=== PATIENT | male | born 1950 | race Caucasian/White ===

== ENCOUNTER 2021-05-18 15:02 | Inpatient (IN) | payer MEDICARE, OTHER ==
[~2021-05-18] VITALS: Ht 172.7 cm; Wt 61.7 kg
[2021-05-18] MEDS ORDERED: METO-356 PO (15:29)
[2021-05-18] MEDS ORDERED: POLY17PO4 PO (15:29)
[2021-05-18] MEDS ORDERED: ERGO500040 PO (15:29)
[2021-05-18] MEDS ORDERED: VALA500T34 PO (15:29)
[2021-05-18] MEDS ORDERED: AMLO-212 PO (15:29)
[2021-05-18 16:13] LABS: HEMATOCRIT 41.8 % (36.7-47.1); MEAN CORPUSCULAR HEMOGLOBIN 31.9 uug (23.8-33.4); MEAN CORPUSCULAR VOLUME 93.6 fL (73.0-96.2); PLATELET COUNT (AUTO) 256 K/uL (152-348)
[2021-05-18 16:17] LABS: CARBON DIOXIDE 28 mmol/L (21-32); CHLORIDE 101 mmol/L (98-107); GLUCOSE 120 mg/dL (74-106); POTASSIUM 4.3 mmol/L (3.5-5.1); UREA NITROGEN, BLOOD 21 mg/dL (7-18)
[2021-05-18 16:18] LABS: ETHANOL < 3 MG/DL (0-0)
[2021-05-18 16:24] LABS: ACETAMINOPHEN < 2.0 ug/mL (10-30); ALANINE AMINOTRANSFERASE 41 U/L (16-63); ALKALINE PHOSPHATASE 169 U/L (50-136); ASPARTATE AMINOTRANSFERASE 34 U/L (15-37); BILIRUBIN,DIRECT 0.1 mg/dL (0.0-0.2); BILIRUBIN,TOTAL 0.5 mg/dL (0.2-1.0); TOTAL PROTEIN, SERUM 7.6 g/dL (6.4-8.2)
[2021-05-18 16:29] LABS: THYROID STIMULATING HORMONE 1.279 mIU/mL (0.358-3.740)
[2021-05-18 16:36] LABS: *BILIRUBIN,URIN NEGATIVE (NEGATIVE); *BLOOD, URINE NEGATIVE (NEGATIVE); *CLARITY,URINE CLEAR (CLEAR); *COLOR,URINE YELLOW (YELLOW); *KETONES,URINE NEGATIVE (NEGATIVE); LEUKOCYTE ESTERASE ,URINE NEGATIVE (NEGATIVE); NITRITE, URINE NEGATIVE (NEGATIVE); PH,URINE 5.5 (5.0-8.0); UGLUCOSE NEGATIVE (NEGATIVE)
[2021-05-18 16:45] LABS: *AMPHETAMINE, URINE NEGATIVE (NEGATIVE); *CANNABINOID, URINE NEGATIVE (NEGATIVE); *COCCAINE, URINE NEGATIVE (NEGATIVE); *OPIATE, URINE NEGATIVE (NEGATIVE); *PHENCYCLIDINE SCREEN,URINE NEGATIVE (NEGATIVE)
[2021-05-18] MEDS ORDERED: LORAZEPAM 0.5 MG TABLET PO ONE (18:00)
[2021-05-18] MEDS ORDERED: LORAZEPAM 1 MG TABLET ONE (18:31)
--- NOTE | 2021-05-18 20:01 | NUR ---
TRANSFERED TO [facility] VIA WHEELCHAIR WITH NO DISTRESS NOTED.
[2021-05-18] MEDS ORDERED: MIRALAX 17 GM POWD.PACK PO PRN (21:00)
[2021-05-18] MEDS ORDERED: ACETAMINOPHEN 325 MG TABLET PO PRN (21:15)
[2021-05-18] MEDS ORDERED: MAGNESIUM HYDROXIDE 30 ML LIQUID UDC PO PRN (21:15)
[2021-05-18] MEDS ORDERED: MAG HYDROX/AL HYDROX/SIMETH 30 ML LIQUID UDC PO PRN (21:15)
[2021-05-18 21:36] VITALS: BP 155/83
[2021-05-18] MEDS: LORAZEPAM 0.5 MG TABLET PO PRN (22:00)
--- NOTE | 2021-05-19 | NUR ---
Patient is a 71 year old male, brought in by family to [facility] ER for a evaluation. The crisis team interviewed this patient placed him on a 5150 for GD. Per the hold, the patient has been depressed and anxious for the last month or so. The Patients was concerned because he has not slept for many days, not bathing and has been staying in a dark room all day and night.The patient is unable to provide self care for himself. Upon face to face evaluation, patient was guarded, nervous and distracted. Manager Community Relations oriented the patient to the environment and the unit rules in order to make patient comfortable. An Advisement and Patients right handbook were provided. The patient has poor insight to his mental health and said he was prescribed an Antidepressant many years ago, but has not taken them because "I do not like to take medications". Manager Community Relations used that opportunity to educate the patient on the importance of compliance. Dr. Nelson was notified and orders were received. This comic book writer medicated the patient for insomnia and provided reassurance informing the patient of the plan of care . No behavioral issues noted and the patient agreed to take a shower without hesitation. Safety stratiges are in place.
[2021-05-19] MEDS: TEMAZEPAM 7.5 MG CAPSULE PO PRN ×2 (00:15→22:48)
[2021-05-19 07:30] VITALS: BP 122/79
[2021-05-19] MEDS: AMLODIPINE 5 MG TABLET PO SCH (08:52)
[2021-05-19] MEDS: METOPROLOL SUCCINATE XL 25 MG TAB.SR.24H PO SCH (08:52)
[2021-05-19] MEDS: VALACYCLOVIR HCL 500 MG TABLET PO SCH (08:52)
--- NOTE | 2021-05-19 10:30 | NUR ---
NAS Initial Discharge Plan Patient currently resides at home [address], [address] and will return home upon discharge to the care of his . NAS will work with the family and MD to coordinate appropriate discharge.
--- NOTE | 2021-05-19 10:32 | NUR ---
Firearms Report: Computer Operations Specialist completed and submitted a [employer] firearms report for 5150 grave disability certifications. A copy of report has been placed in patient chart.
[2021-05-19] MEDS: LORAZEPAM 0.5 MG TABLET PO PRN (11:08)
[2021-05-19] MEDS: SERTRALINE HCL 50 MG TABLET PO SCH (14:16)
--- NOTE | 2021-05-19 15:28 | NUR ---
GPS: PT ALERT AND ORIENTED. DENIES ANY PAIN OR DISCOMFORT. PT AND DAUGHTER CAME FOR A VISIT AT 1200 AND IS REQUESTING TO SPEAK WITH PSYCHIATRIST ABOUT THE MEDICATIONS PT IS TAKING. ALSO MENTIONED THAT PT TAKES MIRALAX EVERYDAY FOR HIS CROHNS DISEASE. PT ASKED FOR THE MEDICATION AN HOUR AGO AND TOLERATED WELL THE MIRALAX. PT ENCOURAGED TO ATTEND GROUP THERAPY.
[2021-05-19 16:36] VITALS: BP 136/82
--- NOTE | 2021-05-19 19:32 | NUR ---
GPS: PT'S RAULITO CAME FOR A VISIT AND REQUESTING TO SPOKE WITH PSYCHIATRIST REGARDING THE 14 DAY HOLD THAT DOES NOT LIKE TO HAPPEN AND SHE IS WILLING TO TAKE CARE OF PT AND WILL JUST HIRE SOMEONE TO HELP THEM. STATED THAT SHE WOULD NOT ALLOW THAT TO HAPPEN, EVEN AFTER EXPLAINING TO HER THAT THAT DOES NOT MEAN THAT PT WILL STAY FOR THE WHOLE 14 DAYS, IT DEPENDS ON THE PT PROGRESS. PER PSYCHIATRIST, THEY ALREADY SPOKE FOR 20 MINUTES TODAY.
[2021-05-19] MEDS: MIRTAZAPINE 15 MG TABLET PO SCH (20:15)
[2021-05-19 20:20] VITALS: BP 136/89
[2021-05-20 07:30] VITALS: BP 122/92
[2021-05-20] MEDS: LORAZEPAM 0.5 MG TABLET PO PRN ×2 (07:43→21:16)
[2021-05-20] MEDS: AMLODIPINE 5 MG TABLET PO SCH (08:20)
[2021-05-20] MEDS: SERTRALINE HCL 50 MG TABLET PO SCH ×2 (08:20→13:00)
[2021-05-20] MEDS: VALACYCLOVIR HCL 500 MG TABLET PO SCH (08:21)
[2021-05-20] MEDS: METOPROLOL SUCCINATE XL 25 MG TAB.SR.24H PO SCH (08:21)
--- NOTE | 2021-05-20 09:27 | NUR ---
GPS: PT RAULITO CALLED AND REQUESTING FOR A CALL FROM DR TOBAR. WILL INFORM PSYCHIATRIST. ALSO REQUESTING FOR A COPY OF MEDICATION LIST FOR PT.
[2021-05-20] MEDS: GLUCERNA SHAKE VANILLA 237 ML CAN PO SCH ×3 (11:14→17:00)
--- NOTE | 2021-05-20 14:48 | NUR ---
GPS: PT SPOKE WITH DR TOBAR TODAY RE: PLANNING TO BRING PT BACK HOME. PER DR TOBAR IT IS NOT ADVISABLE BUT IF PT WOULD LIKE IT, SHE CAN BRING THE PT HOME. PT LIST OF QUESTIONS THAT WAS FAXED WERE ANSWERED BY DR TOBAR OVER THE PHONE TODAY. LIST OF MEDICATIONS THAT REQUESTED BY AND PT WAS PLACED INSIDE THE FOLDER.
[2021-05-20 16:00] VITALS: BP 115/75
--- NOTE | 2021-05-20 19:19 | NUR ---
GPS: AND DAUGHTER CAME FOR A VISIT. REQUESTING FOR A CALL AGAIN FROM PSYCHIATRIST TO TALK ABOUT THE VOLUNTARY VERSUS THE 14 DAY HOLD.
[2021-05-20 20:00] VITALS: BP 135/79
[2021-05-20] MEDS: MIRTAZAPINE 15 MG TABLET PO SCH (20:23)
[2021-05-20] MEDS: TEMAZEPAM 7.5 MG CAPSULE PO PRN (23:04)
--- NOTE | 2021-05-21 06:50 | NUR ---
GPS: Pt.slept 7.30 last night although claims he slept less than that. Remains anxious,sad but denies SI. Re-assured prn. Safety emphasized. Will continue to monitor.
[2021-05-21 07:30] VITALS: BP 142/102
[2021-05-21] MEDS: GLUCERNA SHAKE VANILLA 237 ML CAN PO SCH ×2 (09:00→13:00)
[2021-05-21] MEDS: VALACYCLOVIR HCL 500 MG TABLET PO SCH (09:41)
[2021-05-21] MEDS: AMLODIPINE 5 MG TABLET PO SCH (09:41)
[2021-05-21] MEDS: SERTRALINE HCL 50 MG TABLET PO SCH ×2 (09:41→13:30)
[2021-05-21 09:42] VITALS: BP 142/102
[2021-05-21] MEDS: METOPROLOL SUCCINATE XL 25 MG TAB.SR.24H PO SCH (09:42)
--- NOTE | 2021-05-21 11:39 | NUR ---
Pt's prescription for Zoloft 25 mg PO bid was called in to the patient's preferred pharmacy, [facility] ([phone]). spoke with Chintan.
--- NOTE | 2021-05-21 13:35 | NUR ---
Pt is being picked up by his , Emy. Pt is being discharged home. Prescription was called to patient's pharmacy. Discharge instructions provided, pt verbalizes understanding.
[2021-05-24] MEDS ORDERED: ERGOCALCIFEROL 50,000 UNIT CAPSULE PO SCH (09:00)
== END 2021-05-21 13:30 | disposition home health service (06) | DRG 885 ==
LOC: ER 15:02 → GPS 19:48
PROVIDERS: ADMIT Psychiatry & Neurology Psychosomatic Medicine; ATTEND Nurse Practitioner Acute Care
DX: F33.2 Major depressive disorder, recurrent severe without psychotic features (principal); K50.90 Crohn's disease, unspecified, without complications; F03.90 Unspecified dementia, unspecified severity, without behavioral disturbance, psychotic disturbance, mood disturbance, and anxiety; F09 Unspecified mental disorder due to known physiological condition; I10 Essential (primary) hypertension; Z82.49 Family history of ischemic heart disease and other diseases of the circulatory system; R63.0 Anorexia; Z88.5 Allergy status to narcotic agent; Z88.2 Allergy status to sulfonamides; Z88.8 Allergy status to other drugs, medicaments and biological substances; Z20.822 Contact with and (suspected) exposure to COVID-19
CPT/HCPCS: 36415; 71045; 84443; 85025; 93005; A4663; G0480